=== PATIENT | male | born 1995 | race Caucasian/White ===

== ENCOUNTER 2016-07-04 18:54 | Emergency (ER) | payer SELFPAY ==
[~2016-07-04] VITALS: Ht 170.2 cm; Wt 59.0 kg
[2016-07-04 19:34] VITALS: BP 120/78
== END 2016-07-04 20:11 | disposition left against medical advice (07) ==
LOC: ER 18:56
DX: Z53.21 Procedure and treatment not carried out due to patient leaving prior to being seen by health care provider (principal)

== ENCOUNTER 2016-07-05 13:06 | Emergency (ER) | payer MEDICAID ==
[~2016-07-05] VITALS: Ht 170.2 cm; Wt 61.0 kg
[2016-07-05 13:12] VITALS: BP 121/76
[2016-07-05] MEDS ORDERED: LIDOCAINE HCL 1% 20ML VIAL (Pyxis) INJ MC ONE (15:00)
[2016-07-05] MEDS ORDERED: BACITRACIN ZINC OINT UDPKT TOP ONE (15:00)
== END 2016-07-05 17:51 | disposition left against medical advice (07) ==
LOC: ER 14:19
DX: R22.0 Localized swelling, mass and lump, head (principal); F12.10 Cannabis abuse, uncomplicated
CPT/HCPCS: 99281; Z7610; J3490